=== PATIENT | male | born 1970 | race Caucasian/White ===

== ENCOUNTER 2018-06-26 11:54 | Emergency (ER) | payer OTHER, SELFPAY ==
[2018-06-26 11:55] VITALS: BP 130/79; PULSE 94; RESP 16; TEMP 36.9; O2SAT 96; BMI 20.1
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
[2018-06-26 12:45] VITALS: BP 129/84; PULSE 67; RESP 16; O2SAT 98
== END 2018-06-26 12:48 | disposition home or self-care (01) ==
PROVIDERS: Emergency Provider Emergency Medicine
DX: S16.1XXA Strain of muscle, fascia and tendon at neck level, initial encounter (principal); S39.012A Strain of muscle, fascia and tendon of lower back, initial encounter; V53.5XXA Driver of pick-up truck or van injured in collision with car, pick-up truck or van in traffic accident, initial encounter; Y93.9 Activity, unspecified; Y92.413 State road as the place of occurrence of the external cause; Y99.9 Unspecified external cause status; Z72.0 Tobacco use
CPT/HCPCS: 99283